=== PATIENT | male | born 1945 | race Caucasian/White ===

== ENCOUNTER 2019-09-30 07:42 | Emergency (ER) | payer MEDICARE, BC ==
[~2019-09-30] VITALS: Ht 180.3 cm; Wt 77.6 kg
--- NOTE | 2019-09-30 07:47 | NUR ---
SEEN AND EXAMINED BY .
[2019-09-30] MEDS ORDERED: BUPR100T5 PO (07:53)
--- NOTE | 2019-09-30 07:53 | NUR ---
PT BIB [facility] 89 FROM HOME,DEELING DIZZY AND ANXIOUS UPON WAKING UP THIS MORNING, PT IS AAOX4, NOT IN RESPIRATORY DISTRESS, HOOKED TO MONITOR, KEPT RESTED AND COMFORTABLE, WILL CONTINUE TO MONITOR.
--- NOTE | 2019-09-30 08:00 | NUR ---
IV LINE ESTABLISHED, BLOOD DRAWN AND SENT TO LAB.
[2019-09-30 08:06] LABS: BASOPHILS % (AUTO) 0.5 % (0.0-2.0); EOSINOPHILS % (AUTO) 1.2 % (0.0-6.0); HEMATOCRIT 46 % (39-51); HEMOGLOBIN 15.5 g/dL (13.5-17.5); LYMPHOCYTES # (AUTO) 1.3 /CMM (0.8-4.8); LYMPHOCYTES % (AUTO) 27.4 % (20.0-44.0); MEAN CORPUSCULAR HGB CONC 34 g/dl (31.0-36.0); MEAN CORPUSCULAR VOLUME 93 fL (80-96); MONOCYTES # (AUTO) 0.3 /CMM (0.1-1.30); MONOCYTES % (AUTO) 7.2 % (2.0-12.0); NEUTROPHILS # (AUTO) 2.9 /CMM (1.8-8.9); NEUTROPHILS % (AUTO) 63.7 % (43.0-81.0); PLATELET COUNT (AUTO) 178 /CMM (150-450); RED BLOOD CELL COUNT(AUTO) 4.93 MIL/uL (4.5-6.0); WHITE BLOOD COUNT (AUTO) 4.6 K/uL (4.3-11.0)
--- NOTE | 2019-09-30 08:22 | NUR ---
DENSITOMETRIST AT BEDSIDE FOR XRAY.
[2019-09-30 08:27] LABS: CALCIUM, SERUM 9.4 mg/dL (8.5-10.1); CARBON DIOXIDE 29 mmol/L (21-32); CHLORIDE 103 mmol/L (98-107); CREATININE 0.9 mg/dL (0.6-1.3); GLUCOSE 98 mg/dL (74-106); POTASSIUM 3.4 mmol/L (3.5-5.1); SODIUM SERUM 139 mmol/L (136-145); UREA NITROGEN, BLOOD 15 mg/dL (7-18)
[2019-09-30 08:31] LABS: ALANINE AMINOTRANSFERASE 30 U/L (12-78); ALBUMIN 3.9 g/dL (3.4-5.0); ALKALINE PHOSPHATASE 76 U/L (46-116); ASPARTATE AMINOTRANSFERASE 23 U/L (15-37); BILIRUBIN,DIRECT 0.1 mg/dL (0.0-0.2); BILIRUBIN,TOTAL 0.5 mg/dL (0.2-1.0); TOTAL PROTEIN, SERUM 7.4 g/dL (6.4-8.2)
[2019-09-30 09:20] VITALS: BP 125/83
--- NOTE | 2019-09-30 09:20 | NUR ---
IV removed. Catheter intact and site benign. Pressure and 4x4 applied to site. No bleeding noted. Patient discharged to home in stable condition. Written and verbal after care instructions given. Patient verbalizes understanding of instruction.
== END 2019-09-30 09:21 | disposition home or self-care (01) ==
LOC: ER 07:44
DX: R42 Dizziness and giddiness (principal); F41.9 Anxiety disorder, unspecified; Z98.890 Other specified postprocedural states; Z79.899 Other long term (current) drug therapy
CPT/HCPCS: 36415; 71045-TC; 80048-TC; 80076-TC; 84484-TC; 85025-TC

== ENCOUNTER 2020-12-17 02:53 | Emergency (ER) | payer MEDICARE, BC ==
[~2020-12-17] VITALS: Ht 180.3 cm; Wt 74.8 kg
[~2020-12-17 02:53] MED LIST: BUPR100T5 PO
--- NOTE | 2020-12-17 02:54 | NUR ---
BIBEMS FROM HOME C/O ABDOMINAL PAIN WITH NAUSE SINCE 10AM YESTERDAY., PT AAOX4, DENIES ANY SOB. GOWNED, PALCED ON MONITOR. VSS .PENDING MD SPAIN
[2020-12-17 03:09] LABS: BASOPHILS % (AUTO) 0.7 % (0.0-2.0); HEMATOCRIT 47 % (39-51); HEMOGLOBIN 15.8 g/dL (13.5-17.5); LYMPHOCYTES # (AUTO) 1.3 /CMM (0.8-4.8); LYMPHOCYTES % (AUTO) 20.4 % (20.0-44.0); MEAN CORPUSCULAR HGB CONC 34 g/dl (31.0-36.0); MEAN CORPUSCULAR VOLUME 93 fL (80-96); MONOCYTES # (AUTO) 0.4 /CMM (0.1-1.30); NEUTROPHILS # (AUTO) 4.5 /CMM (1.8-8.9); NEUTROPHILS % (AUTO) 70.9 % (43.0-81.0); PLATELET COUNT (AUTO) 170 /CMM (150-450); RED BLOOD CELL COUNT(AUTO) 5.05 MIL/uL (4.5-6.0); WHITE BLOOD COUNT (AUTO) 6.4 K/uL (4.3-11.0)
[2020-12-17] MEDS ORDERED: IV NS 0.9% 250 ML IV ONE (03:15)
[2020-12-17] MEDS ORDERED: IOHEXOL-300 100 ML VIAL IV ONE (03:15)
[2020-12-17] MEDS ORDERED: CT SWABBABLE VALVE TRANS SET 1 EA INFUS.SET MC ONE (03:15)
[2020-12-17 03:20] LABS: CALCIUM, SERUM 9.1 mg/dL (8.5-10.1); CREATININE 0.8 mg/dL (0.6-1.3); POTASSIUM 3.5 mmol/L (3.5-5.1)
[2020-12-17 03:23] LABS: ALBUMIN 3.8 g/dL (3.4-5.0); BILIRUBIN,DIRECT 0.2 mg/dL (0.0-0.2); BILIRUBIN,TOTAL 0.7 mg/dL (0.2-1.0); TOTAL PROTEIN, SERUM 7.3 g/dL (6.4-8.2)
[2020-12-17] MEDS ORDERED: MORPHINE SULFATE INJ 2 MG/ML DISP.SYRIN IV ONE (03:30)
[2020-12-17] MEDS ORDERED: MORPHINE SULFATE INJ 4 MG/ML DISP.SYRIN ONE (03:47)
[2020-12-17] MEDS ORDERED: OXYC1TAB12 PO (04:47)
[2020-12-17] MEDS ORDERED: ONDANSETRON 4 MG TAB.RAPDIS ONE (05:25)
[2020-12-17] MEDS ORDERED: ONDANSETRON 4 MG TAB.RAPDIS SL ONE (05:30)
--- NOTE | 2020-12-17 05:31 | NUR ---
PT C/O NAUSEA, DR. HIDALGO NOTIFIED. ORDER FOR ZOFRAN ODT GIVEN
--- NOTE | 2020-12-17 06:32 | NUR ---
Patient discharged to home in stable condition. Written and verbal after care instructions given. Patient verbalizes understanding of instruction. IV removed. Catheter intact and site benign. Pressure and 4x4 applied to site. No bleeding noted.
[2020-12-17 06:33] VITALS: BP 131/75
== END 2020-12-17 06:33 | disposition home or self-care (01) ==
LOC: ER 02:53
DX: R10.33 Periumbilical pain (principal); R11.0 Nausea; F41.9 Anxiety disorder, unspecified; Z98.890 Other specified postprocedural states; Z79.899 Other long term (current) drug therapy
CPT/HCPCS: 36415; 74177; 80048; 80076; 83690; 85025; 96374; 99285; J2270; J7050; Q0162; Q9967